=== PATIENT | female | born 1950 | race Caucasian/White ===

== ENCOUNTER 2024-05-09 19:30 | Inpatient (IN) | payer MEDICARE, OTHER ==
[~2024-05-09] VITALS: Ht 175.3 cm; Wt 54.9 kg
[2024-05-09 20:00] VITALS: BP 105/51; TEMP 97.4; O2SAT 96
[2024-05-09] MEDS ORDERED: REMEDY ESSENTIAL ZINC PASTE 113 GM TOP PRN (20:30)
[2024-05-09] MEDS ORDERED: DILT-3 PO (20:52)
[2024-05-09] MEDS ORDERED: BUSP5TAB3 PO (20:52)
[2024-05-09] MEDS ORDERED: VITA-287 PO (20:52)
[2024-05-09] MEDS ORDERED: METO-357 PO (20:52)
[2024-05-09] MEDS ORDERED: BACL5TAB PO (20:52)
[2024-05-09] MEDS ORDERED: TRAZ-182 PO (20:52)
[2024-05-09] MEDS ORDERED: OMEP20CA15 PO (20:52)
[2024-05-09] MEDS ORDERED: ESCI-9 PO (20:52)
[2024-05-09] MEDS ORDERED: CHOL100062 PO (20:52)
[2024-05-09] MEDS ORDERED: SENN8.6T19 PO (20:52)
[2024-05-09] MEDS ORDERED: VENL37.591 PO (20:52)
[2024-05-09] MEDS ORDERED: ATOR40TA PO (20:52)
[2024-05-09] MEDS ORDERED: APIX5TAB PO (20:52)
[2024-05-09] MEDS ORDERED: DIGO125T5 PO (20:52)
[2024-05-09] MEDS ORDERED: ACET-3117 PO (21:05)
[2024-05-09] MEDS ORDERED: MAGN30OR PO (21:05)
[2024-05-09] MEDS ORDERED: BLOO-360 METER (21:05)
[2024-05-09] MEDS ORDERED: DEXT50DI8 IV (21:05)
[2024-05-09] MEDS ORDERED: INSU100V28 SQ (21:05)
[2024-05-09] MEDS ORDERED: LIDO30AD10 TP (21:23)
[2024-05-09] MEDS ORDERED: ZOLP5TAB2 PO (21:39)
[2024-05-09] MEDS: TRAZODONE 50 MG TABLET PO ONE (22:30)
[2024-05-09] MEDS: ZOLPIDEM 5 MG TABLET PO ONE (22:30)
[2024-05-09] MEDS: ATORVASTATIN 40 MG TABLET PO ONE (22:53)
[2024-05-09] MEDS: METOPROLOL SUCCINATE XL 50 MG TAB.SR.24H PO ONE (22:53)
[2024-05-09] MEDS: OXYCODONE/APAP 5-325 MG TABLET PO PRN (23:02)
[2024-05-10] MEDS: TRAZODONE 50 MG TABLET PO ONE (00:19)
[2024-05-10 06:00] VITALS: BP 110/62; TEMP 97.6; O2SAT 97
[2024-05-10] MEDS ORDERED: APIXABAN 2.5 MG TABLET PO SCH (09:00)
[2024-05-10 09:30] VITALS: BP 104/50; TEMP 98; O2SAT 94
[2024-05-10] MEDS: DILTIAZEM HCL CD 120 MG CAP.SR.24H PO SCH (09:35)
[2024-05-10] MEDS: APIXABAN 5 MG TABLET PO SCH (09:36)
[2024-05-10] MEDS ORDERED: OXYCODONE/APAP 5-325 MG TABLET PO PRN (09:45)
[2024-05-10 10:08] VITALS: O2SAT 95
[2024-05-10] MEDS: DIGOXIN 125 MCG TABLET PO SCH (12:22)
[2024-05-10 16:00] VITALS: BP 96/53; TEMP 97.7; O2SAT 94
[2024-05-10] MEDS ORDERED: MAG HYDROX/AL HYDROX/SIMETH 30 ML LIQUID UDC PO PRN (16:45)
[2024-05-10] MEDS ORDERED: APIXABAN 5 MG TABLET PO SCH (17:00)
[2024-05-10] MEDS: busPIRone 5 MG TABLET PO SCH (17:15)
[2024-05-10] MEDS ORDERED: BREYNA PO (17:24)
[2024-05-10 20:29] VITALS: BP 91/41; TEMP 97.8; O2SAT 95
[2024-05-10] MEDS: METOPROLOL SUCCINATE XL 50 MG TAB.SR.24H PO SCH (21:00)
[2024-05-10] MEDS ORDERED: METOPROLOL SUCCINATE XL 50 MG TAB.SR.24H PO SCH (21:00)
[2024-05-10] MEDS: ATORVASTATIN 40 MG TABLET PO SCH (21:28)
[2024-05-10] MEDS: TRAZODONE 50 MG TABLET PO SCH (21:28)
[2024-05-11 05:40] VITALS: BP 102/38; TEMP 97.8; O2SAT 92
[2024-05-11] MEDS: TRAMADOL HCL 50 MG TABLET PO PRN (05:46)
[2024-05-11] MEDS: PANTOPRAZOLE SODIUM 40 MG TABLET.DR PO SCH (06:43)
[2024-05-11 07:06] LABS: BASOPHILS % (AUTO) 0.4 % (0.0-2.0); EOSINOPHILS # (AUTO) 0.2 K/uL (0.0-0.7); EOSINOPHILS % (AUTO) 2.6 % (0.0-7.0); HEMATOCRIT 34.7 % (31.2-41.9); HEMOGLOBIN 11.5 g/dL (10.9-14.3); LYMPHOCYTES # (AUTO) 1.2 K/uL (0.8-4.8); LYMPHOCYTES % (AUTO) 19.7 % (20.5-51.5); MEAN CORPUSCULAR HEMOGLOBIN 34.7 uug (24.7-32.8); MEAN CORPUSCULAR HGB CONC 33 g/dL (32.3-35.6); MEAN CORPUSCULAR VOLUME 104.3 fL (75.5-95.3); MONOCYTES # (AUTO) 0.7 K/uL (0.1-1.30); MONOCYTES % (AUTO) 10.7 % (0.0-11.0); NEUTROPHILS # (AUTO) 4.2 K/uL (1.8-8.9); NEUTROPHILS % (AUTO) 66.6 % (38.5-71.5); PLATELET COUNT (AUTO) 126 K/uL (179-408); RED BLOOD CELL COUNT(AUTO) 3.33 MIL/uL (3.63-4.92); RED CELL DISTRIBUTION WIDTH 13.2 % (12.3-17.7); WHITE BLOOD COUNT (AUTO) 6.2 K/uL (3.8-11.8)
[2024-05-11 07:20] LABS: DIFFERENTIAL COMMENT 1
[2024-05-11 07:23] LABS: ALANINE AMINOTRANSFERASE 18 U/L (14-59); ALBUMIN 2.4 g/dL (3.4-5.0); ALKALINE PHOSPHATASE 106 U/L (50-136); ASPARTATE AMINOTRANSFERASE 18 U/L (15-37); BILIRUBIN,TOTAL 0.4 mg/dL (0.2-1.0); CALCIUM 8.7 mg/dL (8.5-10.1); CARBON DIOXIDE 33 mmol/L (21-32); CHLORIDE 103 mmol/L (98-107); GLUCOSE 93 mg/dL (74-106); POTASSIUM 4.2 mmol/L (3.5-5.1); SODIUM SERUM 138 mmol/L (136-145); TOTAL PROTEIN, SERUM 5.7 g/dL (6.4-8.2); UREA NITROGEN, BLOOD 27 mg/dL (7-18)
[2024-05-11] MEDS: ESCITALOPRAM OXALATE 10 MG TABLET PO SCH (08:23)
[2024-05-11] MEDS: VENLAFAXINE XR 37.5 MG CAP.SR.24H PO SCH (08:23)
[2024-05-11] MEDS: LIDOCAINE 5% PATCH TD SCH (08:25)
[2024-05-11] MEDS: CHOLECALCIFEROL 1,000 UNIT TABLET PO SCH (08:25)
[2024-05-11 08:35] VITALS: O2SAT 96
[2024-05-11 08:43] VITALS: BP 107/47; TEMP 97.2; O2SAT 93
[2024-05-11] MEDS ORDERED: Medication Not On Formulary EA (Omeprazole 1 CAP) PO SCH (09:00)
[2024-05-11] MEDS ORDERED: DIGOXIN 125 MCG TABLET PO SCH (09:00)
[2024-05-11] MEDS ORDERED: DILTIAZEM HCL CD 240 MG CAP.SR.24H PO SCH (09:00)
[2024-05-11] MEDS: VITAMIN B COMPLEX 1 TABLET PO SCH (09:35)
[2024-05-11] MEDS: FLUTICASONE/VILANTEROL 1 EACH BLST.W.DEV INH SCH (09:37)
[2024-05-11 15:50] VITALS: BP 111/49; TEMP 97.9; O2SAT 97
[2024-05-11] MEDS: GABAPENTIN 100 MG CAPSULE PO SCH (21:09)
[2024-05-11 21:23] VITALS: O2SAT 97
[2024-05-11 22:32] VITALS: BP 110/61; TEMP 98; O2SAT 100
[2024-05-12 15:00] VITALS: BP 100/50; TEMP 98.4; O2SAT 95
[2024-05-12] MEDS: ENSURE ENLIVE (VAN) 240 ML LIQUID PO SCH (16:02)
[2024-05-12] MEDS: OXYCODONE/APAP 5-325 MG TABLET PO PRN (17:20)
[2024-05-12 20:00] VITALS: TEMP 97.5; O2SAT 92
[2024-05-12] MEDS: ZOLPIDEM 5 MG TABLET PO PRN (20:17)
[2024-05-12 21:00] VITALS: BP 92/43; O2SAT 95
[2024-05-13 06:00] VITALS: BP 112/47; TEMP 97.9; O2SAT 96
[2024-05-13] MEDS: ACETAMINOPHEN 325 MG TABLET PO PRN (06:16)
[2024-05-13] MEDS: SENNOSIDES 1 TABLET PO PRN (08:11)
[2024-05-13 11:38] VITALS: BP 105/48; TEMP 98.6; O2SAT 95
[2024-05-13 15:36] VITALS: O2SAT 96
[2024-05-13 16:20] VITALS: BP 108/46; TEMP 97.8; O2SAT 95
[2024-05-13 20:27] LABS: THYROID STIMULATING HORMONE 2.269 mIU/mL (0.358-3.740)
[2024-05-13 22:29] VITALS: BP 95/51; TEMP 98.4; O2SAT 83
[2024-05-14 06:59] VITALS: BP 113/45; TEMP 98.4; O2SAT 91
[2024-05-14 15:35] VITALS: O2SAT 95
[2024-05-14 16:00] VITALS: BP 90/46; TEMP 98.3; O2SAT 92
[2024-05-14 22:22] VITALS: BP 107/41; TEMP 97.8; O2SAT 87
[2024-05-15] MEDS: OXYCODONE/APAP 5-325 MG TABLET PO PRN (03:19)
[2024-05-15 04:42] VITALS: BP 105/27; TEMP 97.6; O2SAT 91
[2024-05-15 12:00] VITALS: O2SAT 92
[2024-05-15] MEDS: GABAPENTIN 100 MG CAPSULE PO SCH (13:57)
[2024-05-15 16:00] VITALS: BP 107/49; TEMP 97.3; O2SAT 92
[2024-05-15 20:47] VITALS: BP 129/41; TEMP 98.1; O2SAT 92
[2024-05-15] MEDS: GUAIFENESIN/DEXTROMETHORPHAN 5 ML UDC PO PRN (23:56)
[2024-05-16] VITALS (9 sets, daily range): BP systolic 110–130; BP diastolic 36–69; TEMP 97.9–98; O2SAT 88–97
[2024-05-16] MEDS: IPRATROPIUM BROMIDE 0.5 MG/2.5 ML NEBU NEB PRN (00:11)
[2024-05-16] MEDS: ALBUTEROL SULFATE 1.25 MG/3 ML NEBU NEB PRN (00:11)
[2024-05-16] MEDS: MIRALAX 17 GM POWD.PACK PO SCH (08:38)
[2024-05-16 12:18] LABS: *BILIRUBIN,URIN NEGATIVE (NEGATIVE); *BLOOD, URINE 3+ (NEGATIVE); *CLARITY,URINE CLOUDY (CLEAR); *COLOR,URINE DARK YELLOW (YELLOW); *KETONES,URINE NEGATIVE (NEGATIVE); *PROTEIN,URINE 2+ (NEGATIVE); LEUKOCYTE ESTERASE ,URINE 1+ (NEGATIVE); NITRITE, URINE POSITIVE (NEGATIVE); PH,URINE 8.5 (5.0-8.0); UGLUCOSE NEGATIVE (NEGATIVE)
[2024-05-16 12:39] LABS: BACTERIA,URINE MANY /HPF (NONE SEEN); RBC,URINE TNTC /HPF (0-3); SQUAMOUS EPITHELIAL CELL,UR MODERATE /HPF (NONE SEEN)
[2024-05-16] MEDS: NITROFURANTOIN/NITROFURAN MAC 100 MG CAPSULE PO SCH (21:29)
[2024-05-17] VITALS (7 sets, daily range): BP systolic 112–121; BP diastolic 45–70; TEMP 97.7–98.2; O2SAT 88–97
[2024-05-17] MEDS: BACLOFEN 10 MG TABLET PO PRN (09:38)
[2024-05-18 07:02] VITALS: BP 102/63; TEMP 97.1; O2SAT 94
[2024-05-18] MEDS: FUROSEMIDE 20 MG TABLET PO ONE (08:05)
[2024-05-18 15:37] VITALS: BP 94/46; TEMP 97.6; O2SAT 95
[2024-05-18 20:07] VITALS: BP 90/38; TEMP 97.7; O2SAT 84
[2024-05-18 21:16] VITALS: BP 104/53; O2SAT 90
[2024-05-19 06:54] VITALS: BP 126/67; TEMP 98.5; O2SAT 90
[2024-05-19] MEDS: VENLAFAXINE XR 75 MG TAB.ER.24H PO SCH (08:49)
[2024-05-19] MEDS: FOLIC ACID 1 MG TABLET PO SCH (08:50)
[2024-05-19] MEDS ORDERED: VENLAFAXINE XR 37.5 MG CAP.SR.24H PO SCH (09:00)
[2024-05-19 09:40] VITALS: O2SAT 97
[2024-05-19 12:01] VITALS: BP 98/62; TEMP 97.3; O2SAT 97
[2024-05-19 15:25] VITALS: BP 103/40; TEMP 98.2; O2SAT 94
[2024-05-19 20:26] VITALS: BP 140/76; TEMP 98; O2SAT 90
[2024-05-19 21:03] VITALS: O2SAT 94
[2024-05-20 05:34] VITALS: BP 110/53; TEMP 98; O2SAT 92
[2024-05-20 08:20] VITALS: O2SAT 96
[2024-05-20 16:37] VITALS: BP 105/54; TEMP 97.3; O2SAT 93
[2024-05-20 21:11] VITALS: BP 97/43; TEMP 97.8; O2SAT 92
[2024-05-20 23:43] VITALS: O2SAT 95
[2024-05-21 06:40] VITALS: BP 109/54; TEMP 97.7; O2SAT 93
[2024-05-21 10:30] VITALS: O2SAT 95
[2024-05-21 16:11] VITALS: BP 104/57; TEMP 97.6; O2SAT 94
[2024-05-21 21:46] VITALS: BP 149/76; TEMP 98; O2SAT 10
[2024-05-21 21:57] VITALS: O2SAT 96
[2024-05-22 05:30] VITALS: BP 116/52; TEMP 97.6; O2SAT 98
[2024-05-22 05:32] VITALS: BP 116/52; TEMP 97.8; O2SAT 98
[2024-05-22 08:22] VITALS: BP 134/59; O2SAT 90
[2024-05-22] MEDS: CYANOCOBALAMIN 1000 MCG/ML VIAL IM ONE (12:42)
[2024-05-22] MEDS ORDERED: GABA100C PO (12:55)
[2024-05-22 13:40] VITALS: O2SAT 93
[2024-05-22 16:00] VITALS: BP 138/78; TEMP 97.6; O2SAT 98
== END 2024-05-22 16:00 | disposition home health service (06) | DRG 559 ==
PROVIDERS: ADMIT Physical Medicine & Rehabilitation Pain Medicine; ATTEND Physical Medicine & Rehabilitation Pain Medicine
DX: M48.55XD Collapsed vertebra, not elsewhere classified, thoracolumbar region, subsequent encounter for fracture with routine healing (principal); E43 Unspecified severe protein-calorie malnutrition; N17.0 Acute kidney failure with tubular necrosis; I50.32 Chronic diastolic (congestive) heart failure; I48.20 Chronic atrial fibrillation, unspecified; R64 Cachexia; N17.9 Acute kidney failure, unspecified; F33.2 Major depressive disorder, recurrent severe without psychotic features; N39.0 Urinary tract infection, site not specified; G20.A1 Parkinson's disease without dyskinesia, without mention of fluctuations; E78.5 Hyperlipidemia, unspecified; M47.815 Spondylosis without myelopathy or radiculopathy, thoracolumbar region; I08.1 Rheumatic disorders of both mitral and tricuspid valves; I11.0 Hypertensive heart disease with heart failure; G47.9 Sleep disorder, unspecified; I44.7 Left bundle-branch block, unspecified; G89.29 Other chronic pain; Z88.0 Allergy status to penicillin; Z88.1 Allergy status to other antibiotic agents; Z88.2 Allergy status to sulfonamides; D64.9 Anemia, unspecified; R53.1 Weakness; F41.9 Anxiety disorder, unspecified; J44.9 Chronic obstructive pulmonary disease, unspecified; K21.9 Gastro-esophageal reflux disease without esophagitis; K59.00 Constipation, unspecified; Z74.09 Other reduced mobility; R26.89 Other abnormalities of gait and mobility
CPT/HCPCS: 36415; 71045; 83921; 84443; 85025; 94640; A4663; J3420; J3590

== ENCOUNTER 2024-05-29 19:30 | Inpatient (IN) | payer MEDICARE, OTHER ==
[~2024-05-29] VITALS: Ht 175.3 cm; Wt 48.1 kg
[~2024-05-29 19:30] MED LIST: ACET-3117 PO; APIX5TAB PO; ATOR40TA PO; BACL5TAB PO; BREYNA PO; BUSP5TAB3 PO; CHOL100062 PO; DIGO125T5 PO; DILT-3 PO; GABA100C PO; LIDO30AD10 TP; METO-357 PO; OMEP20CA15 PO; SENN8.6T19 PO; TRAZ-182 PO; VENL37.591 PO; VITA-287 PO
[2024-05-29 21:59] VITALS: BP 135/59; TEMP 97.8; O2SAT 92
[2024-05-29] MEDS ORDERED: REMEDY ESSENTIAL ZINC PASTE 113 GM TOP PRN (22:00)
[2024-05-29] MEDS ORDERED: BUDE0.5A NEB (22:14)
[2024-05-29] MEDS ORDERED: TOBR5DRO36 LEFTEYE (22:14)
[2024-05-29] MEDS ORDERED: ALBU1.25 NEB (22:14)
[2024-05-29] MEDS ORDERED: METR500P4 IV (22:14)
[2024-05-29] MEDS ORDERED: VANC125C5 PO (22:14)
[2024-05-29] MEDS ORDERED: ESCI-9 PO (22:14)
[2024-05-30] MEDS: HYDROCODONE/APAP 5-325MG TABLET PO ONE (00:37)
[2024-05-30] MEDS: MELATONIN 3 MG TABLET PO SCH (02:30)
[2024-05-30 06:31] VITALS: BP 123/64; TEMP 97.6; O2SAT 95
[2024-05-30] MEDS ORDERED: APIXABAN 2.5 MG TABLET PO SCH (09:00)
[2024-05-30] MEDS: DIGOXIN 125 MCG TABLET PO SCH (09:14)
[2024-05-30] MEDS: DILTIAZEM HCL CD 120 MG CAP.SR.24H PO SCH (09:15)
[2024-05-30] MEDS: APIXABAN 5 MG TABLET PO SCH (09:17)
[2024-05-30] MEDS ORDERED: METR500P4 IV (11:00)
[2024-05-30] MEDS ORDERED: TOBR3.5O LEFTEYE (11:00)
[2024-05-30] MEDS ORDERED: VANC125C11 PO (11:00)
[2024-05-30 16:00] VITALS: BP 141/64; TEMP 97.6; O2SAT 96
[2024-05-30 16:15] VITALS: O2SAT 96
[2024-05-30] MEDS: BUDESONIDE 0.5 MG/2 ML NEBU NEB SCH (16:22)
[2024-05-30] MEDS: ALBUTEROL SULFATE 1.25 MG/3 ML NEBU NEB SCH (16:22)
[2024-05-30] MEDS ORDERED: TOBRAMYCIN SULFATE OPHT OINT 3.5 GM TUBE LEFTEYE SCH (17:00)
[2024-05-30] MEDS: GABAPENTIN 100 MG CAPSULE PO SCH (17:22)
[2024-05-30] MEDS: busPIRone 5 MG TABLET PO SCH (17:23)
[2024-05-30] MEDS: TOBRAMYCIN/DEXAMETH OPHT DROP 2.5 ML BOTTLE LEFTEYE SCH (17:26)
[2024-05-30] MEDS ORDERED: METRONIDAZOLE 500 MG/NS 100 ML PIGGYBACK IV SCH (18:00)
[2024-05-30] MEDS: VANCOMYCIN FOR PO/GT/NG USE PO SCH (18:51)
[2024-05-30] MEDS: METRONIDAZOLE 500 MG/NS 100ML 500 MG in PREMIXED 1 EACH IV SCH (18:52)
[2024-05-30] MEDS ORDERED: BUDESONIDE 0.25 MG/2 ML NEBU ONE (19:32)
[2024-05-30 19:51] VITALS: O2SAT 99
[2024-05-30 20:00] VITALS: BP 141/69; TEMP 98.6; O2SAT 95
[2024-05-30] MEDS: METOPROLOL SUCCINATE XL 50 MG TAB.SR.24H PO SCH (21:30)
[2024-05-30] MEDS: TRAZODONE 50 MG TABLET PO SCH (21:32)
[2024-05-31] VITALS (10 sets, daily range): BP systolic 109–128; BP diastolic 47–74; TEMP 98.1; O2SAT 95–98
[2024-05-31] MEDS ORDERED: VANCOMYCIN IV 0 ML ONE (00:08)
[2024-05-31] MEDS: PANTOPRAZOLE SODIUM 40 MG TABLET.DR PO SCH (06:13)
[2024-05-31] MEDS ORDERED: BUDESONIDE 0.25 MG/2 ML NEBU ONE (07:51)
[2024-05-31] MEDS ORDERED: ALBUTEROL SULFATE 1.25 MG/3 ML NEBU ONE (07:52)
[2024-05-31] MEDS: CHOLECALCIFEROL 1,000 UNIT TABLET PO SCH (08:53)
[2024-05-31] MEDS: BACLOFEN 10 MG TABLET PO SCH (08:53)
[2024-05-31] MEDS: VITAMIN B COMPLEX 1 TABLET PO SCH (08:53)
[2024-05-31] MEDS: LIDOCAINE 5% PATCH TD SCH (08:53)
[2024-05-31] MEDS: ESCITALOPRAM OXALATE 10 MG TABLET PO SCH (08:55)
[2024-05-31] MEDS: VENLAFAXINE XR 37.5 MG CAP.SR.24H PO SCH (08:55)
[2024-05-31] MEDS ORDERED: IPRATROPIUM BROMIDE 0.5 MG/2.5 ML NEBU ONE (09:03)
[2024-05-31] MEDS: METRONIDAZOLE 500 MG TABLET PO SCH (12:21)
[2024-06-01] VITALS (12 sets, daily range): BP systolic 102–115; BP diastolic 46–56; TEMP 97.9–98.3; O2SAT 89–99
[2024-06-01] MEDS: OXYCODONE/APAP 5-325 MG TABLET PO PRN (08:45)
[2024-06-01] MEDS: ENSURE ENLIVE (VAN) 240 ML LIQUID PO SCH (12:50)
[2024-06-02] VITALS (8 sets, daily range): BP systolic 116–122; BP diastolic 56–63; TEMP 97.8–97.9; O2SAT 90–99
[2024-06-02] MEDS: VANCOMYCIN FOR PO/GT/NG USE PO SCH (17:02)
[2024-06-03] VITALS (7 sets, daily range): BP systolic 112–177; BP diastolic 45–70; TEMP 96.8–98.2; O2SAT 94–99
[2024-06-04] VITALS (11 sets, daily range): BP systolic 119–156; BP diastolic 45–57; TEMP 96.6–98.3; O2SAT 89–98
[2024-06-04] MEDS: OXYCODONE/APAP 5-325 MG TABLET PO PRN (19:02)
[2024-06-04] MEDS: ACETAMINOPHEN 325 MG TABLET PO PRN (21:29)
[2024-06-05] VITALS (10 sets, daily range): BP systolic 96–119; BP diastolic 45–54; TEMP 97.5–98.1; O2SAT 94–98
[2024-06-05] MEDS: ZOLPIDEM 5 MG TABLET PO ONE (01:40)
[2024-06-05] MEDS: FOLIC ACID 1 MG TABLET PO SCH (09:22)
[2024-06-05] MEDS: FUROSEMIDE 20 MG TABLET PO ONE (09:45)
[2024-06-06] VITALS (11 sets, daily range): BP systolic 100–121; BP diastolic 42–58; TEMP 97.8–98; O2SAT 92–99
[2024-06-06] MEDS ORDERED: BUDESONIDE 0.5 MG/2 ML NEBU ONE (07:42)
[2024-06-06] MEDS ORDERED: BUDESONIDE 0.25 MG/2 ML NEBU ONE ×2 (07:42→19:18)
[2024-06-06] MEDS: ACETAMINOPHEN 500 MG TABLET PO PRN (21:10)
[2024-06-07] VITALS (13 sets, daily range): BP systolic 118–120; BP diastolic 45–58; TEMP 97.6–99.2; O2SAT 92–99
[2024-06-08] VITALS (11 sets, daily range): BP systolic 114–131; BP diastolic 46–48; TEMP 97.8–97.9; O2SAT 94–99
[2024-06-08 06:56] LABS: BASOPHILS % (AUTO) 0.3 % (0.0-2.0); EOSINOPHILS # (AUTO) 0.1 K/uL (0.0-0.7); EOSINOPHILS % (AUTO) 1.7 % (0.0-7.0); HEMATOCRIT 32.8 % (31.2-41.9); HEMOGLOBIN 10.7 g/dL (10.9-14.3); LYMPHOCYTES # (AUTO) 0.8 K/uL (0.8-4.8); MEAN CORPUSCULAR HEMOGLOBIN 34.1 uug (24.7-32.8); MEAN CORPUSCULAR HGB CONC 33 g/dL (32.3-35.6); MEAN CORPUSCULAR VOLUME 104.4 fL (75.5-95.3); MONOCYTES # (AUTO) 0.5 K/uL (0.1-1.30); MONOCYTES % (AUTO) 10.8 % (0.0-11.0); NEUTROPHILS # (AUTO) 3.6 K/uL (1.8-8.9); NEUTROPHILS % (AUTO) 71.2 % (38.5-71.5); PLATELET COUNT (AUTO) 106 K/uL (179-408); RED BLOOD CELL COUNT(AUTO) 3.14 MIL/uL (3.63-4.92); RED CELL DISTRIBUTION WIDTH 14.6 % (12.3-17.7); WHITE BLOOD COUNT (AUTO) 5.1 K/uL (3.8-11.8)
[2024-06-08 07:12] LABS: DIFFERENTIAL COMMENT 1
[2024-06-08 07:47] LABS: ALANINE AMINOTRANSFERASE 16 U/L (14-59); ALBUMIN 2.3 g/dL (3.4-5.0); ALKALINE PHOSPHATASE 104 U/L (50-136); ASPARTATE AMINOTRANSFERASE 16 U/L (15-37); BILIRUBIN,TOTAL 0.6 mg/dL (0.2-1.0); CALCIUM 8.7 mg/dL (8.5-10.1); CARBON DIOXIDE 34 mmol/L (21-32); CHLORIDE 105 mmol/L (98-107); CREATININE 0.9 mg/dL (0.6-1.3); GLUCOSE 99 mg/dL (74-106); MAGNESIUM 2.2 mg/dL (1.8-2.4); PHOSPHOROUS 3.9 mg/dL (2.5-4.9); POTASSIUM 4.4 mmol/L (3.5-5.1); SODIUM SERUM 141 mmol/L (136-145); TOTAL PROTEIN, SERUM 6.1 g/dL (6.4-8.2); UREA NITROGEN, BLOOD 25 mg/dL (7-18)
[2024-06-09] VITALS (10 sets, daily range): BP systolic 103–108; BP diastolic 42–57; TEMP 97–98.1; O2SAT 96–99
[2024-06-09] MEDS ORDERED: BUDESONIDE 0.5 MG/2 ML NEBU ONE (08:16)
[2024-06-09] MEDS ORDERED: VANCOMYCIN FOR PO/GT/NG USE PO SCH (09:00)
[2024-06-10] VITALS (11 sets, daily range): BP systolic 95–141; BP diastolic 63–66; TEMP 97.4–97.6; O2SAT 92–99
[2024-06-10 08:09] LABS: BASOPHILS % (AUTO) 0.6 % (0.0-2.0); EOSINOPHILS # (AUTO) 0.1 K/uL (0.0-0.7); HEMATOCRIT 32.1 % (31.2-41.9); HEMOGLOBIN 10.6 g/dL (10.9-14.3); LYMPHOCYTES # (AUTO) 0.9 K/uL (0.8-4.8); LYMPHOCYTES % (AUTO) 22.1 % (20.5-51.5); MEAN CORPUSCULAR HEMOGLOBIN 34.6 uug (24.7-32.8); MEAN CORPUSCULAR HGB CONC 33 g/dL (32.3-35.6); MEAN CORPUSCULAR VOLUME 105.1 fL (75.5-95.3); MONOCYTES # (AUTO) 0.4 K/uL (0.1-1.30); MONOCYTES % (AUTO) 10.3 % (0.0-11.0); NEUTROPHILS # (AUTO) 2.5 K/uL (1.8-8.9); PLATELET COUNT (AUTO) 114 K/uL (179-408); RED BLOOD CELL COUNT(AUTO) 3.06 MIL/uL (3.63-4.92); RED CELL DISTRIBUTION WIDTH 14.7 % (12.3-17.7); WHITE BLOOD COUNT (AUTO) 3.9 K/uL (3.8-11.8)
[2024-06-10 08:13] LABS: DIFFERENTIAL COMMENT 1
[2024-06-10] MEDS ORDERED: BUDESONIDE 0.5 MG/2 ML NEBU ONE (20:29)
[2024-06-11] VITALS (11 sets, daily range): BP systolic 97–115; BP diastolic 49–57; TEMP 97.5–98; O2SAT 91–99
[2024-06-11 12:29] LABS: CALCIUM 8.7 mg/dL (8.5-10.1); CARBON DIOXIDE 33 mmol/L (21-32); CHLORIDE 106 mmol/L (98-107); CREATININE 1.1 mg/dL (0.6-1.3); GLUCOSE 109 mg/dL (74-106); SODIUM SERUM 142 mmol/L (136-145); UREA NITROGEN, BLOOD 35 mg/dL (7-18)
[2024-06-11 12:32] LABS: BASOPHILS % (AUTO) 1.1 % (0.0-2.0); DIFFERENTIAL COMMENT 0; EOSINOPHILS # (AUTO) 0.1 K/uL (0.0-0.7); EOSINOPHILS % (AUTO) 2.1 % (0.0-7.0); HEMATOCRIT 33.8 % (31.2-41.9); LYMPHOCYTES # (AUTO) 0.5 K/uL (0.8-4.8); LYMPHOCYTES % (AUTO) 12.5 % (20.5-51.5); MEAN CORPUSCULAR HGB CONC 33 g/dL (32.3-35.6); MEAN CORPUSCULAR VOLUME 107.1 fL (75.5-95.3); MONOCYTES # (AUTO) 0.5 K/uL (0.1-1.30); MONOCYTES % (AUTO) 12.1 % (0.0-11.0); NEUTROPHILS % (AUTO) 72.2 % (38.5-71.5); PLATELET COUNT (AUTO) 122 K/uL (179-408); RED BLOOD CELL COUNT(AUTO) 3.16 MIL/uL (3.63-4.92); RED CELL DISTRIBUTION WIDTH 15.4 % (12.3-17.7); WHITE BLOOD COUNT (AUTO) 4.2 K/uL (3.8-11.8)
[2024-06-11 12:35] LABS: ALANINE AMINOTRANSFERASE 30 U/L (14-59); ALBUMIN 2.3 g/dL (3.4-5.0); ALKALINE PHOSPHATASE 111 U/L (50-136); ASPARTATE AMINOTRANSFERASE 35 U/L (15-37); BILIRUBIN,TOTAL 0.4 mg/dL (0.2-1.0); TOTAL PROTEIN, SERUM 6.1 g/dL (6.4-8.2)
[2024-06-11] MEDS ORDERED: IV NORMAL SALINE 1000 ML BAG IV ONE (13:30)
[2024-06-11] MEDS: IV NS 1000 ML 1,000 ML IV ONE (14:23)
[2024-06-11] MEDS ORDERED: BUDESONIDE 0.5 MG/2 ML NEBU ONE (20:35)
[2024-06-11] MEDS: METOPROLOL SUCCINATE XL 50 MG TAB.SR.24H PO SCH (20:43)
[2024-06-12 02:16] VITALS: O2SAT 96
[2024-06-12 02:30] VITALS: O2SAT 98
[2024-06-12 06:30] VITALS: BP 121/56; TEMP 97.8; O2SAT 94
[2024-06-12 08:28] VITALS: O2SAT 94
[2024-06-12 08:38] VITALS: O2SAT 98
[2024-06-12] MEDS: MIDODRINE HCL 5 MG TABLET PO SCH (11:24)
[2024-06-12 16:00] VITALS: BP 124/47; TEMP 98.7; O2SAT 93
[2024-06-16] MEDS ORDERED: VANCOMYCIN FOR PO/GT/NG USE PO SCH (09:00)
== END 2024-06-12 18:05 | disposition home health service (06) | DRG 280 ==
PROVIDERS: ADMIT Physical Medicine & Rehabilitation Pain Medicine; ATTEND Physical Medicine & Rehabilitation Pain Medicine
DX: I11.0 Hypertensive heart disease with heart failure (principal); A41.9 Sepsis, unspecified organism; I21.A1 Myocardial infarction type 2; I50.43 Acute on chronic combined systolic (congestive) and diastolic (congestive) heart failure; J96.21 Acute and chronic respiratory failure with hypoxia; N17.0 Acute kidney failure with tubular necrosis; E87.20 Acidosis, unspecified; I48.20 Chronic atrial fibrillation, unspecified; E44.0 Moderate protein-calorie malnutrition; R53.1 Weakness; D53.9 Nutritional anemia, unspecified; I08.1 Rheumatic disorders of both mitral and tricuspid valves; J44.9 Chronic obstructive pulmonary disease, unspecified; I44.7 Left bundle-branch block, unspecified; Z95.0 Presence of cardiac pacemaker; Z95.2 Presence of prosthetic heart valve; D69.6 Thrombocytopenia, unspecified; G20.A1 Parkinson's disease without dyskinesia, without mention of fluctuations; G89.29 Other chronic pain; M19.90 Unspecified osteoarthritis, unspecified site; K52.9 Noninfective gastroenteritis and colitis, unspecified; M48.56XD Collapsed vertebra, not elsewhere classified, lumbar region, subsequent encounter for fracture with routine healing; Z88.0 Allergy status to penicillin; Z88.1 Allergy status to other antibiotic agents; Z88.2 Allergy status to sulfonamides; Z90.49 Acquired absence of other specified parts of digestive tract; Z99.81 Dependence on supplemental oxygen; Z87.440 Personal history of urinary (tract) infections
CPT/HCPCS: 36415; 71045; 83735; 84100; 85025; 94640; 94760; 97535-GO-CO; A9150; J3370; J3490; J3590; J7040